=== PATIENT | male | born 1950 | race Caucasian/White ===

== ENCOUNTER → 2016-06-08 | Outpatient (CLI) | payer BC ==
[~2016-06-08] MED LIST: CLOP1TAB5 PO; FLV1 PO; LISI-461 PO; METF-382 PO; METO100T14 PO; MULT-513 PO; NIAC1TAB56 PO; NTRGSL/4 UT; PANT40TA2 PO; ZCR80 PO
== END | disposition home or self-care (01) ==
LOC: C.LAB 09:22
DX: I25.10 Atherosclerotic heart disease of native coronary artery without angina pectoris (principal); E61.2 Magnesium deficiency; I10 Essential (primary) hypertension

== ENCOUNTER → 2016-06-20 | Outpatient (CLI) | payer BC ==
[~2016-06-20] MED LIST changes: -PANT40TA2 PO; +PRT/40 PO
--- NOTE | 2016-06-23 08:11 | PULMONARY FUNCTION TEST ---
Spirometry is consistent with a severe restrictive pattern. Repeat study done following bronchodilator showed no change in function. Flow volume loops were consistent with spirometric findings.
== END | disposition home or self-care (01) ==
LOC: C.RC 13:53
DX: J44.9 Chronic obstructive pulmonary disease, unspecified (principal); J90 Pleural effusion, not elsewhere classified; Z90.2 Acquired absence of lung [part of]

== ENCOUNTER → 2016-06-21 | Outpatient (CLI) | payer BC | END | disposition home or self-care (01) | LOC: C.RC 17:03 | DX: I50.9 Heart failure, unspecified (principal); R06.00 Dyspnea, unspecified ==

== ENCOUNTER → 2016-09-12 | Outpatient (CLI) | payer BC ==
[~2016-09-12] MED LIST changes: +PANT40TA2 PO; -PRT/40 PO
== END | disposition home or self-care (01) ==
LOC: C.RC 17:00
DX: R09.02 Hypoxemia (principal)

== ENCOUNTER → 2017-01-23 | Outpatient (CLI) | payer BC ==
[~2017-01-23] MED LIST changes: -PANT40TA2 PO; +PRT/40 PO
[2017-01-23 12:06] LABS: BASO % 0.2 %; BASO ABS # 0.02 K/uL (0-0.2); COMPLETE YES; EOS % 2.1 %; HEMATOCRIT 40.8 % (42-52); IG% 0.4 %; LYMPH ABS # 1.89 K/uL (1.2-3.4); MEAN CELL VOLUME 101.2 fL (80-100); MEAN CORPUSCULAR HEMOGLOBIN 34.7 pg (25-34); MEAN CORPUSCULAR HGB CONC 34.3 g/dl (32-36); MEAN PLATELET VOLUME 10.9 fL (7.4-10.4); MONO % 8.9 %; NEUT % 65.4 %; PLATELET COUNT 126 K/uL (130-400); RED BLOOD COUNT 4.03 M/uL (4.7-6.1); WHITE BLOOD COUNT 8.22 K/uL (4.8-10.8)
[2017-01-23 12:18] LABS: ALT/SGPT 21 U/L (12-78); AST/SGOT 15 U/L (15-37); BLOOD UREA NITROGEN 30 mg/dl (7-18); BUN/CREATININE RATIO 23.3 (10-20); CALCIUM 9.1 mg/dl (8.5-10.1); CARBON DIOXIDE 29 mmol/L (21-32); CHLORIDE 108 mmol/L (98-107); CHOLESTEROL 142 mg/dl (0-200); GLUCOSE 87 mg/dl (70-99); MAGNESIUM 1.6 mg/dl (1.8-2.4); POTASSIUM 4.4 mmol/L (3.5-5.1); SODIUM 141 mmol/L (136-145); URIC ACID 4.8 mg/dl (2.6-7.2)
[2017-01-23 12:20] LABS: CHOLESTEROL/HDL RATIO 3.2; HDL CHOLESTEROL 44 mg/dl; LDL CHOLESTEROL CALCULATED 54 mg/dl; TRIGLYCERIDES 222 mg/dl (0-150); VERY LOW DENSITY LIPOPROT CALC 44 mg/dl
== END | disposition home or self-care (01) ==
LOC: C.LAB 09:48
DX: E78.5 Hyperlipidemia, unspecified (principal); R73.9 Hyperglycemia, unspecified; E79.0 Hyperuricemia without signs of inflammatory arthritis and tophaceous disease

== ENCOUNTER → 2017-02-01 | Outpatient (CLI) | payer BC ==
[2017-02-01 12:07] LABS: BASO % 0.2 %; BASO ABS # 0.02 K/uL (0-0.2); COMPLETE YES; IG% 0.4 %; LYMPH % 28.7 %; LYMPH ABS # 2.32 K/uL (1.2-3.4); MEAN CELL VOLUME 103.3 fL (80-100); MEAN CORPUSCULAR HEMOGLOBIN 33.3 pg (25-34); MEAN CORPUSCULAR HGB CONC 32.3 g/dl (32-36); MEAN PLATELET VOLUME 10.9 fL (7.4-10.4); MONO % 8.7 %; PLATELET COUNT 143 K/uL (130-400); RED BLOOD COUNT 4.26 M/uL (4.7-6.1); WHITE BLOOD COUNT 8.07 K/uL (4.8-10.8)
--- NOTE | 2017-02-15 08:35 | CODING QUERY MEDICAL NECESSITY ---
SUPPORTING DIAGNOSIS NEEDED Dr. Ford, A supporting diagnosis is required for the test/procedure performed on this patient in order for us to be reimbursed by the patient's insurance. Please provide a supporting diagnosis for the following test/procedure listed below next to the test name along with your signature. *If there is no additional diagnosis for this patient that would support the following test/procedure please document that below next to the test/procedure. Test(s)/Procedure(s) that require a supporting diagnosis: * ([id number]) B12 VITAMIN LEVEL DIAGNOSIS: * ([id number]) FOLATE LEVEL DIAGNOSIS: DATE OF SERVICE: 02/01/17 Provider Signature: Date: Thank you [facility] Information Management Once completed, please kindly fax back to [phone] For questions please call [phone]
== END | disposition home or self-care (01) ==
LOC: C.LAB 10:21
DX: D64.9 Anemia, unspecified (principal); E53.9 Vitamin B deficiency, unspecified

== ENCOUNTER → 2017-05-03 | Outpatient (CLI) | payer BC ==
[~2017-05-03] MED LIST changes: +PANT40TA2 PO; -PRT/40 PO
--- NOTE | 2017-05-03 13:58 | DIAGNOSTIC IMAGING REPORT ---
CHEST 2 VIEWS ROUTINE CLINICAL HISTORY: 66 years-old Male presenting with L ARM SWELLING. TECHNIQUE: PA and lateral views of the chest were obtained. COMPARISON: 05/30/2016. FINDINGS: Left subclavian implanted cardiac defibrillator with lead to the right ventricular apex. Median sternotomy wires and mediastinal surgical clips. Atherosclerosis of aortic arch. Persistent enlargement of the cardiac silhouette. Persistent moderate right and [id number] left pleural effusions with basilar predominant opacities. Mild prominence of upper lobe pulmonary vasculature. No pneumothorax. Osseous structures normal. Upper abdomen normal. IMPRESSION: 1. Cardiomegaly with persistent bibasilar opacities and right greater than left pleural effusions. A component of pulmonary edema cannot be excluded, although bibasilar opacities likely represent chronic passive atelectasis. Electronically signed by: Alex Quintana M.D. 05/03/2017 1:57 PM Dictated Date/Time: 05/03/2017 1:55 PM
--- NOTE | 2017-05-03 14:24 | DIAGNOSTIC IMAGING REPORT ---
L VENOUS DOPPLER UPR EXT UNIL HISTORY: Pain. Edema. L ARM SWELLING COMPARISON STUDY: None. FINDINGS: Findings consistent with nonocclusive thrombus remains within the left axillary vein as well as the left subclavian vein. Compressibility is somewhat compromised. All remaining venous structures are unremarkable. IMPRESSION: Acute deep venous thrombosis of the left axillary and left subclavian veins The above report was generated using voice recognition software. It may contain grammatical, syntax or spelling errors. Electronically signed by: Jossue Stahl M.D. 05/03/2017 2:23 PM Dictated Date/Time: 05/03/2017 2:21 PM
[2017-05-03 16:51] LABS: BASO % 0.2 %; BASO ABS # 0.02 K/uL (0-0.2); COMPLETE YES; EOS % 2.3 %; HEMATOCRIT 42.3 % (42-52); IG% 0.2 %; LYMPH % 27.4 %; LYMPH ABS # 2.62 K/uL (1.2-3.4); MEAN CORPUSCULAR HEMOGLOBIN 35.2 pg (25-34); MEAN CORPUSCULAR HGB CONC 33.6 g/dl (32-36); MEAN PLATELET VOLUME 11.2 fL (7.4-10.4); MONO % 9.7 %; NEUT % 60.2 %; PLATELET COUNT 140 K/uL (130-400); RED BLOOD COUNT 4.03 M/uL (4.7-6.1); WHITE BLOOD COUNT 9.57 K/uL (4.8-10.8)
== END | disposition home or self-care (01) ==
LOC: C.ULTRBC 13:34
DX: R22.32 Localized swelling, mass and lump, left upper limb (principal); E53.8 Deficiency of other specified B group vitamins; R23.3 Spontaneous ecchymoses

== ENCOUNTER → 2017-05-15 | Outpatient (CLI) | payer BC ==
[2017-05-15 09:55] LABS: ESTIMATED AVERAGE GLUCOSE 126 mg/dl; HA1C FLAG Normal (Normal)
== END | disposition home or self-care (01) ==
LOC: C.LAB 07:13
DX: E88.81 Metabolic syndrome and other insulin resistance (principal)

== ENCOUNTER → 2017-08-15 | Outpatient (CLI) | payer BC ==
[2017-08-15 09:42] LABS: BASO % 0.3 %; BASO ABS # 0.02 K/uL (0-0.2); EOS % 3.2 %; EOS ABS # 0.23 K/uL (0-0.5); HEMOGLOBIN 15.1 g/dL (14.0-18.0); IG# 0.03 K/uL (0.00-0.02); LYMPH % 31.4 %; LYMPH ABS # 2.29 K/uL (1.2-3.4); MEAN CELL VOLUME 104.9 fL (80-100); MEAN CORPUSCULAR HEMOGLOBIN 35.2 pg (25-34); MEAN CORPUSCULAR HGB CONC 33.6 g/dl (32-36); MEAN PLATELET VOLUME 10.8 fL (7.4-10.4); MONO % 7.8 %; MONO ABS # 0.57 K/uL (0.11-0.59); NEUT % 56.9 %; NEUT ABS # 4.16 K/uL (1.4-6.5); PLATELET COUNT 139 K/uL (130-400); RED CELL DISTRIBUTION WIDTH CV 13.9 % (11.5-14.5); RED CELL DISTRIBUTION WIDTH SD 52.7 fL (36.4-46.3)
[2017-08-15 09:47] LABS: HEMOGLOBIN A1C 6.2 % (4.5-5.6)
[2017-08-15 10:28] LABS: ALT/SGPT 22 U/L (12-78); AST/SGOT 16 U/L (15-37); BLOOD UREA NITROGEN 40 mg/dl (7-18); CALCIUM 9.5 mg/dl (8.5-10.1); CARBON DIOXIDE 32 mmol/L (21-32); CHOLESTEROL 147 mg/dl (0-200); CREATININE 1.89 mg/dl (0.60-1.40); GLUCOSE 99 mg/dl (70-99); POTASSIUM 5.5 mmol/L (3.5-5.1); SODIUM 140 mmol/L (136-145)
[2017-08-15 10:31] LABS: LDL CHOLESTEROL CALCULATED 40 mg/dl
== END | disposition home or self-care (01) ==
LOC: C.LAB 07:06
DX: R73.9 Hyperglycemia, unspecified (principal); I10 Essential (primary) hypertension; E78.5 Hyperlipidemia, unspecified; M10.9 Gout, unspecified; E53.8 Deficiency of other specified B group vitamins

== ENCOUNTER → 2017-08-21 | Outpatient (CLI) | payer BC ==
[2017-08-21 14:20] LABS: INFLUENZA A PCR Neg for Influ A (NEG); INFLUENZA B PCR Neg for Influ B (NEG)
== END | disposition home or self-care (01) ==
LOC: C.LAB 12:35
DX: R50.9 Fever, unspecified (principal); R05 Cough

== ENCOUNTER 2019-07-04 14:37 | Observation (INO) ==
[2019-07-04] MEDS ORDERED: SODIUM CHLORIDE 0.9% 1000ML 1,000 ML IV SCH (16:30)
[2019-07-04 16:49] LABS: Basophils # (auto) 0.01 K/uL (0-0.2); Basophils % (auto) 0.1 %; Eosinophils % (auto) 1.1 %; Hematocrit (blood only) 45.4 % (42-52); Immature Granulocytes # (auto) 0.04 K/uL (0.00-0.02); Immature Granulocytes % (auto) 0.4 %; Lymphocytes # (auto) 1.64 K/uL (1.2-3.4); Lymphocytes % (auto) 17.8 %; Mean Corpuscular Hemoglobin 33.7 pg (25-34); Mean Corpuscular Hgb Conc 35.2 g/dL (32-36); Mean Corpuscular Volume 95.6 fL (80-100); Mean Platelet Volume 11.7 fL (7.4-10.4); Monocytes # (auto) 0.78 K/uL (0.11-0.59); Monocytes % (auto) 8.5 %; Neutrophils # (auto) 6.64 K/uL (1.4-6.5); Neutrophils % (auto) 72.1 %; Platelet Count 159 K/uL (130-400); RDW Coefficient of Variation 13.4 % (11.5-14.5); RDW Standard Deviation 46.1 fL (36.4-46.3); Red Blood Count 4.75 M/uL (4.7-6.1); White Blood Count 9.21 K/uL (4.8-10.8)
--- NOTE | 2019-07-04 16:50 | XRay Report ---
XR chest 1V portable HISTORY: 69 years-old Male weakness acute weakness COMPARISON: Chest radiographs 05/03/2017 TECHNIQUE: Portable AP view of the chest FINDINGS: Cardiac silhouette is enlarged. Prior median sternotomy and CABG. Left subclavian pacer/AICD. Unchang ed pleural effusions with bibasilar densities. No pneumothorax or overt pulmonary edema. Degenerative changes of the shoulders and spine. IMPRESSION: 1. Stable exam. 2. Cardiomegaly with unchanged pleural effusions and bibasilar opacities suggestive of probable atele ctasis/scarring. ACT 112: Negative or not required by law. The above report was generated using voice recognition software. It may contain grammatical, syntax o r spelling errors. Electronically signed by: Everett Garcia M.D. 07/04/2019 4:49 PM
[2019-07-04 17:05] LABS: Alanine Aminotransferase 21 U/L (12-78); Albumin Globulin Ratio 0.8 (0.9-2); Albumin Level 3.6 gm/dl (3.4-5.0); BUN Creatinine Ratio 18.1 (10-20); Bilirubin,Total 0.7 mg/dl (0.2-1); Blood Urea Nitrogen 32 mg/dl (7-18); Calcium 9.5 mg/dl (8.5-10.1); Carbon Dioxide 31 mmol/L (21-32); Chloride 91 mmol/L (98-107); Creatinine Clr Calc Pharmacy 39.9 ml/min; Est GFR (African American) 43.8; Est GFR (Non-African American) 37.8; Globulin 4.6 gm/dl (2.5-4.0); Glucose 624 mg/dl (70-99); Sodium 128 mmol/L (136-145); Total Protein 8.2 gm/dl (6.4-8.2)
[2019-07-04 17:08] LABS: Alkaline Phosphatase 118 U/L (45-117); Troponin I < 0.015 ng/ml (0-0.045)
[2019-07-04] MEDS ORDERED: INSULIN PROTOCOL GOAL RANGE ONE (17:14)
[2019-07-04] MEDS ORDERED: MODERATE STRESS LEVEL ONE (17:14)
[2019-07-04] MEDS ORDERED: INSULIN REGULAR 250 UNITS in SODIUM CHLORIDE 0.9% 247.5 ML IV SCH (17:15)
[2019-07-04] MEDS ORDERED: SODIUM CHLORIDE 0.9% 1000ML 500 ML IV ONE (17:24)
[2019-07-04] MEDS ORDERED: DEXTROSE 50% 50 ML SYRINGE IV PRN ×2 (17:30→19:43)
[2019-07-04] MEDS ORDERED: GLUCOSE 40% GEL 15 GM TUBE PO PRN ×2 (17:30→19:43)
[2019-07-04] MEDS ORDERED: GLUCAGON FOR INJ 1 MG VIAL IM PRN (17:30)
[2019-07-04] MEDS ORDERED: CARBOHYDRATES FOR HYPOGLYCEMIA PO PRN ×2 (17:30→19:43)
[2019-07-04] MEDS ORDERED: GLUCOSE 10 TABS/TUBE PO PRN ×2 (17:30→19:43)
[2019-07-04] MEDS ORDERED: NovoLIN-R BOLUS FROM BAG IV ONE (17:45)
--- NOTE | 2019-07-04 19:00 | History & Physical Report ---
Date of Service July 04, 2019 Assessment & Plan (1) Severe hyperglycemia due to diabetes mellitus: Presented with 2 months of worsening blurry vision, excessive thirst, fatigue and found to have blood sugar of 624 on admission Reports discontinuing his metformin 1 year ago likely for worsening CKD and starting on Januvia at that time Hemoglobin A1c reportedly 7.2% just 6 months ago No evidence of DKA Fairly significant increase in glucose levels over the last few months-question if pancreatic process going on -Admit to medical floor with telemetry -Finish out the 1 L of normal saline and then hold off on further fluids given cardiomyopathy -On insulin drip-consult pharmacy for glycemic management -Plan to likely transition to basal and bolus insulin tomorrow based on requirements with insulin drip -Follow BMP, phosphorus, magnesium -Consult ems educator and dietitian -Check hemoglobin [id number] -Consider imaging of the pancreas tomorrow (2) ACACIA (acute kidney injury): Creatinine up to 1.78 on admission secondary to dehydration from hyperglycemia Baseline creatinine around 1.4 -Hydrated with normal saline, control blood sugars -Follow BMP in the morning -Holding home lisinopril and Lasix (3) CKD (chronic kidney disease) stage 3, GFR 30-59 ml/min: With acute kidney injury as above -Avoid nephrotoxins -Renally dose medications when appropriate (4) Chronic pleural effusion: Reports having thoracentesis 15 years ago after the time of his CABG Appears to have chronic pleural effusions likely from heart failure Not hypoxic, no respiratory distress (5) Diabetes mellitus: Plan outlined as above (6) Gout: No acute flares in many years -Continue allopurinol 100 mg p.o. twice daily (7) Hypertension: Blood pressures controlled to low on admission -Holding lisinopril and Lasix for ACACIA as above Continue Toprol-XL 125 mg p.o. twice daily with hold parameters (8) Hyperlipidemia: -Continue atorvastatin 80 mg at bedtime (9) ICD (implantable cardioverter-defibrillator) in place: For primary prevention given severe ischemic cardiomyopathy (10) GERD (gastroesophageal reflux disease): Continue PPI (11) CAD (coronary artery disease), [place] coronary artery: With a history of CABG in 2003 and then stents to the RCA in 2004 No problems since then No chest pains ECG with anterolateral T wave inversions fairly similar to previous Troponin here is negative -Continue aspirin 81 mg daily, statin 80 mg daily, Toprol-XL 125 mg p.o. twice daily -Holding lisinopril (12) Hyponatremia: Pseudohyponatremia secondary to severe hyperglycemia Sodium corrected is normal -Follow BMP (13) Abnormal ECG: Anterolateral T wave inversions as above, fairly stable from previous (14) Chronic systolic CHF (congestive heart failure): Most recent echocardiogram scanned and has an LVEF 40% which is an improvement from previous -Continue Toprol-XL -Holding lisinopril and Lasix as above -Strict I's and O's, daily weights, heart healthy diet (15) DVT prophylaxis: Lovenox SQ Disposition-admit on observation to medical floor with telemetry History of Present Illness Chief Complaint: High blood sugar Primary Care Provider: Galo Ford Jr, DO This patient is a 69-year-old male with a history of DM 2, chronic systolic CHF, ischemic cardiomyopathy, CKD stage III, ICD/PPM, gout, CAD with history of CABG, GERD, who presented to the ER after he found his blood sugar to be greater than 600 on his meter at home. He reports he was stopped from his metformin 1 year ago and his hemoglobin A1c 6 months ago was 7.2%. He was placed on Januvia when his metformin was stopped. He stopped checking his blood sugars a few months back. And has noticed over the last 2 months he is developed excessive thirst, blurry vision, and worsening fatigue. He finally got his glucometer out today and checked his sugar and found it to be 600. He denies chest pains or shortness of breath, no weight gain or loss. No nausea or vomiting, no abdominal pains or changes in bowel habits. No recent fevers/cold symptoms, no cough. In the ER, he was given 500 mL bolus of normal saline followed by the rest of the 500 mils at a rate of 125 mL's per hour. He was started on insulin drip before I saw him. Blood sugars were down into the mid 400s when I saw him. He had a mild acute kidney injury. His beta hydroxybutyric acid was elevated, however he had no evidence of metabolic acidosis or DKA. Allergies Allergy/AdvReac Type Severity Reaction Status Date / Time No Known Allergies Allergy Unknown Verified 07/04/19 16:32 Home Medications Home Medications Medication Instructions Recorded Confirmed Type Januvia 50 mg PO QAM 05/09/19 07/04/19 History One-A-Day Men's 50 Plus 1 tab PO QAM 05/09/19 07/04/19 History allopurinol 100 mg PO BID 05/09/19 07/04/19 History aspirin [Aspirin Low Dose] 81 mg PO QAM 05/09/19 07/04/19 History atorvastatin 80 mg PO HS 05/09/19 07/04/19 History colchicine 0.6 mg PO DAILY PRN 05/09/19 07/04/19 History cyanocobalamin (vitamin B-12) 1,000 mcg IM MONTHLY 05/09/19 07/04/19 History folic acid 800 mcg PO QAM 05/09/19 07/04/19 History furosemide [Lasix] 20 mg PO Q OTHER DAY 05/09/19 07/04/19 History furosemide [Lasix] 40 mg PO Q OTHER DAY 05/09/19 07/04/19 History lisinopril 10 mg PO QAM 05/09/19 07/04/19 History magnesium oxide 400 mg PO QAM 05/09/19 07/04/19 History metoprolol succinate [Toprol XL] 25 mg PO BID 05/09/19 07/04/19 History metoprolol succinate [Toprol XL] 100 mg PO BID 05/09/19 07/04/19 History nitroglycerin [Nitrostat] 0.4 mg SUBLINGUAL UD PRN 05/09/19 07/04/19 History omega 6-kid-ckm-fish oil 1 cap PO QDL 05/09/19 07/04/19 History pantoprazole [Protonix] 20 mg PO BID 05/09/19 07/04/19 History Past Med/Surg History Medical History (Updated 07/04/19 @ 21:19 by Carlene Figueredo MD) CAD (coronary artery disease), [place] coronary artery Chronic pleural effusion Chronic systolic CHF (congestive heart failure) CKD (chronic kidney disease) stage 3, GFR 30-59 ml/min Diabetes mellitus GERD (gastroesophageal reflux disease) Gout History of anesthesia reaction hallucinated after bypass surgery---no lingering issues, no further issues with anesthesia Hyperlipidemia Hypertension ICD (implantable cardioverter-defibrillator) in place 01/05/2016[place] [place] [facility] [place]schemic cardiomyopathy Lung abnormality hx of fluid around right lung--drained, but scared lung, unable to full expand (50% function) On home oxygen therapy 2L via N/C prn sob Tinnitus of right ear Surgical History [place] of cardiac [place] x2[place] [facility] [place] of [place]oscopy History of coronary artery bypass graft x 3 10/2003---follows with Dr. Flynn History of heart artery stent 04/03/2005 [place] [facility] [place] of surgery drainage of fluid from around right lung Family History Mother Family history of diabetes mellitus Other No family history of adverse response to anesthesia Social History Preferred Language: [place] Communication Ability: Effective Supervisor Steno Pool Required: No Beliefs That Will Affect Care: None Current Living Situation: Spouse Other Information That Helps Us Care for You: No Feels Safe at Home: Yes Safety Concerns: Feels Safe At This Time Smoking Status: Former smoker Smoking End Date: 15 years ago ; Second Hand Expo sure: No ; Hx Alcohol Use: No Hx Substance Use: No Review of Systems Review of Systems: All systems reviewed & are unremarkable except as noted in HPI & below Physical Exam Constitutional: WD/WN, vitals as above Eyes: PERRL, conjunctivae normal, anicteric sclerae ENMT: external ear and nose normal, oropharynx normal Neck: trachea midline, no thyromegaly Respiratory: normal respiratory effort, lungs clear to auscultation Cardiovascular: RRR, no murmur, no edema Vessels: dorsalis pedis pulses present Extremities: no calf tenderness Chest (Breasts): Chest: + pacemaker (Left anterior chest wall) Gastrointestinal (Abdomen): normal bowel sounds, soft, nontender, no hepatosplenomegaly Musculoskeletal: Extremities: extremities normal to inspection; no cyanosis and no clubbing Skin: no rashes, warm and dry Neurologic: moves all extremities and awake; no focal motor deficits Psychiatric: A+Ox3, euthymic affect Lymphatic: no lymphedema Results & Data Vital Signs (Past 12 Hours) Vital Signs Temp Pulse Resp BP Pulse Ox 07/04/19 18:00 68 24 92/59 L 91 07/04/19 17:30 69 23 95/60 L 92 07/04/19 17:05 94 07/04/19 17:00 68 33 H 116/63 93 07/04/19 16:30 72 29 H 119/78 90 07/04/19 16:00 72 23 101/73 89 L 07/04/19 15:36 69 18 97/61 L 91 07/04/19 15:02 36.4 C L 71 18 111/70 91 Laboratory Results 07/04/19 07/04/19 07/04/19 Range/Units 21:01 20:06 19:55 WBC (4.8-10.8) K/uL RBC (4.7-6.1) M/uL Hgb (14.0-18.0) g/dL Hct (42-52) % MCV (80-100) fL MCH (25-34) pg MCHC (32-36) g/dL RDW Std Deviation (36.4-46.3) fL RDW Coeff of Mike (11.5-14.5) % Plt Count (130-400) K/uL MPV (7.4-10.4) fL Immature Gran % (Auto) % Neut % (Auto) % Lymph % (Auto) % [place] % (Auto) % Eos % (Auto) % Baso % (Auto) % Immature Gran # (Auto) (0.00-0.02) K/uL Neut # (Auto) (1.4-6.5) K/uL Lymph # (Auto) (1.2-3.4) K/uL [place] # (Auto) (0.11-0.59) K/uL Eos # (Auto) (0-0.5) K/uL Baso # (Auto) (0-0.2) K/uL Sodium (136-145) mmol/L Potassium (3.5-5.1) mmol/L Chloride (98-107) mmol/L Carbon Dioxide (21-32) mmol/L Anion Gap (3-11) BUN (7-18) mg/dl Creatinine (0.6-1.4) mg/dl Est Cr Clr Drug Dosing ml/min Est GFR ( Amer) Est GFR (Non-Af Amer) BUN/Creatinine Ratio (10-20) Glucose (70-99) mg/dl POC Glucose 324 H* 401 H* (70-99) mg/dl Estimat Average Glucose Hemoglobin A1c Calcium (8.5-10.1) mg/dl Phosphorus (2.5-4.9) mg/dl Magnesium (1.8-2.4) mg/dl Total Bilirubin (0.2-1) mg/dl AST (15-37) U/L ALT (12-78) U/L Alkaline Phosphatase (45-117) U/L Troponin I (0-0.045) ng/ml Total Protein (6.4-8.2) gm/dl Albumin (3.4-5.0) gm/dl Globulin (2.5-4.0) gm/dl Albumin/Globulin Ratio (0.9-2) Beta-Hydroxybutyric Acd (0.2-2.81) mg/dl TSH (0.300-4.500) uIu/ml Urine Color Yellow Urine Appearance Clear (Clear) Urine pH 5.0 (4.5-7.5) Ur Specific [place] 1.035 H (1.000-1.030) Urine Protein Negative (Negative) Urine Glucose (UA) 3+ H (Negative) Urine Ketones 1+ H (Negative) Urine Blood Negative (Negative) Urine Nitrite Negative (Negative) Urine Bilirubin Negative (Negative) Urine Urobilinogen Negative (Negative) Ur Leukocyte Esterase Negative (Negative) Hepatitis C Ab Screen 07/04/19 07/04/19 07/04/19 Range/Units 18:51 18:27 18:27 WBC (4.8-10.8) K/uL RBC (4.7-6.1) M/uL Hgb (14.0-18.0) g/dL Hct (42-52) % MCV (80-100) fL MCH (25-34) pg MCHC (32-36) g/dL RDW Std Deviation (36.4-46.3) fL RDW Coeff of Mike (11.5-14.5) % Plt Count (130-400) K/uL MPV (7.4-10.4) fL Immature Gran % (Auto) % Neut % (Auto) % Lymph % (Auto) % [place] % (Auto) % Eos % (Auto) % Baso % (Auto) % Immature Gran # (Auto) (0.00-0.02) K/uL Neut # (Auto) (1.4-6.5) K/uL Lymph # (Auto) (1.2-3.4) K/uL [place] # (Auto) (0.11-0.59) K/uL Eos # (Auto) (0-0.5) K/uL Baso # (Auto) (0-0.2) K/uL Sodium 133 L (136-145) mmol/L Potassium 4.6 (3.5-5.1) mmol/L Chloride 97 L (98-107) mmol/L Carbon Dioxide 28 (21-32) mmol/L Anion Gap 8.0 (3-11) BUN 31 H (7-18) mg/dl Creatinine 1.49 H (0.6-1.4) mg/dl Est Cr Clr Drug Dosing 47.6 ml/min Est GFR ( Amer) 54.3 Est GFR (Non-Af Amer) 46.9 BUN/Creatinine Ratio 20.8 H (10-20) Glucose 447 H* (70-99) mg/dl POC Glucose 450 H* (70-99) mg/dl Estimat Average Glucose Hemoglobin A1c Calcium 9.1 (8.5-10.1) mg/dl Phosphorus 2.8 (2.5-4.9) mg/dl Magnesium 2.6 H (1.8-2.4) mg/dl Total Bilirubin (0.2-1) mg/dl AST 12 L (15-37) U/L ALT (12-78) U/L Alkaline Phosphatase (45-117) U/L Troponin I (0-0.045) ng/ml Total Protein (6.4-8.2) gm/dl Albumin (3.4-5.0) gm/dl Globulin (2.5-4.0) gm/dl Albumin/Globulin Ratio (0.9-2) Beta-Hydroxybutyric Acd Cancelled 10.21 H (0.2-2.81) mg/dl TSH (0.300-4.500) uIu/ml Urine Color Urine Appearance (Clear) Urine pH (4.5-7.5) Ur Specific [place] (1.000-1.030) Urine Protein (Negative) Urine Glucose (UA) (Negative) Urine Ketones (Negative) Urine Blood (Negative) Urine Nitrite (Negative) Urine Bilirubin (Negative) Urine Urobilinogen (Negative) Ur Leukocyte Esterase (Negative) Hepatitis C Ab Screen 07/04/19 07/04/19 07/04/19 Range/Units 17:36 17:35 15:26 WBC (4.8-10.8) K/uL RBC (4.7-6.1) M/uL Hgb (14.0-18.0) g/dL Hct (42-52) % MCV (80-100) fL MCH (25-34) pg MCHC (32-36) g/dL RDW Std Deviation (36.4-46.3) fL RDW Coeff of Mike (11.5-14.5) % Plt Count (130-400) K/uL MPV (7.4-10.4) fL Immature Gran % (Auto) % Neut % (Auto) % Lymph % (Auto) % [place] % (Auto) % Eos % (Auto) % Baso % (Auto) % Immature Gran # (Auto) (0.00-0.02) K/uL Neut # (Auto) (1.4-6.5) K/uL Lymph # (Auto) (1.2-3.4) K/uL [place] # (Auto) (0.11-0.59) K/uL Eos # (Auto) (0-0.5) K/uL Baso # (Auto) (0-0.2) K/uL Sodium (136-145) mmol/L Potassium (3.5-5.1) mmol/L Chloride (98-107) mmol/L Carbon Dioxide (21-32) mmol/L Anion Gap (3-11) BUN (7-18) mg/dl Creatinine (0.6-1.4) mg/dl Est Cr Clr Drug Dosing ml/min Est GFR ( Amer) Est GFR (Non-Af Amer) BUN/Creatinine Ratio (10-20) Glucose (70-99) mg/dl POC Glucose 481 H* 489 H* (70-99) mg/dl Estimat Average Glucose Hemoglobin A1c Calcium (8.5-10.1) mg/dl Phosphorus (2.5-4.9) mg/dl Magnesium (1.8-2.4) mg/dl Total Bilirubin (0.2-1) mg/dl AST (15-37) U/L ALT (12-78) U/L Alkaline Phosphatase (45-117) U/L Troponin I (0-0.045) ng/ml Total Protein (6.4-8.2) gm/dl Albumin (3.4-5.0) gm/dl Globulin (2.5-4.0) gm/dl Albumin/Globulin Ratio (0.9-2) Beta-Hydroxybutyric Acd (0.2-2.81) mg/dl TSH (0.300-4.500) uIu/ml Urine Color Urine Appearance (Clear) Urine pH (4.5-7.5) Ur Specific [place] (1.000-1.030) Urine Protein (Negative) Urine Glucose (UA) (Negative) Urine Ketones (Negative) Urine Blood (Negative) Urine Nitrite (Negative) Urine Bilirubin (Negative) Urine Urobilinogen (Negative) Ur Leukocyte Esterase (Negative) Hepatitis C Ab Screen Pending 07/04/19 07/04/19 07/04/19 Range/Units 15:26 15:26 15:26 WBC 9.21 (4.8-10.8) K/uL RBC 4.75 (4.7-6.1) M/uL Hgb 16.0 (14.0-18.0) g/dL Hct 45.4 (42-52) % MCV 95.6 (80-100) fL MCH 33.7 (25-34) pg MCHC 35.2 (32-36) g/dL RDW Std Deviation 46.1 (36.4-46.3) fL RDW Coeff of Mike 13.4 (11.5-14.5) % Plt Count 159 (130-400) K/uL MPV 11.7 H (7.4-10.4) fL Immature Gran % (Auto) 0.4 % Neut % (Auto) 72.1 % Lymph % (Auto) 17.8 % [place] % (Auto) 8.5 % Eos % (Auto) 1.1 % Baso % (Auto) 0.1 % Immature Gran # (Auto) 0.04 H (0.00-0.02) K/uL Neut # (Auto) 6.64 H (1.4-6.5) K/uL Lymph # (Auto) 1.64 (1.2-3.4) K/uL [place] # (Auto) 0.78 H (0.11-0.59) K/uL Eos # (Auto) 0.10 (0-0.5) K/uL Baso # (Auto) 0.01 (0-0.2) K/uL Sodium 128 L (136-145) mmol/L Potassium (3.5-5.1) mmol/L Chloride 91 L (98-107) mmol/L Carbon Dioxide 31 (21-32) mmol/L Anion Gap 5.0 (3-11) BUN 32 H (7-18) mg/dl Creatinine 1.78 H (0.6-1.4) mg/dl Est Cr Clr Drug Dosing 39.9 ml/min Est GFR ( Amer) 43.8 Est GFR (Non-Af Amer) 37.8 BUN/Creatinine Ratio 18.1 (10-20) Glucose 624 H* (70-99) mg/dl POC Glucose (70-99) mg/dl Estimat Average Glucose Pending Hemoglobin A1c Pending Calcium 9.5 (8.5-10.1) mg/dl Phosphorus (2.5-4.9) mg/dl Magnesium (1.8-2.4) mg/dl Total Bilirubin 0.7 (0.2-1) mg/dl AST (15-37) U/L ALT 21 (12-78) U/L Alkaline Phosphatase 118 H (45-117) U/L Troponin I < 0.015 (0-0.045) ng/ml Total Protein 8.2 (6.4-8.2) gm/dl Albumin 3.6 (3.4-5.0) gm/dl Globulin 4.6 H (2.5-4.0) gm/dl Albumin/Globulin Ratio 0.8 L (0.9-2) Beta-Hydroxybutyric Acd (0.2-2.81) mg/dl TSH 1.930 (0.300-4.500) uIu/ml Urine Color Urine Appearance (Clear) Urine pH (4.5-7.5) Ur Specific [place] (1.000-1.030) Urine Protein (Negative) Urine Glucose (UA) (Negative) Urine Ketones (Negative) Urine Blood (Negative) Urine Nitrite (Negative) Urine Bilirubin (Negative) Urine Urobilinogen (Negative) Ur Leukocyte Esterase (Negative) Hepatitis C Ab Screen 07/04/19 Range/Units 15:08 WBC (4.8-10.8) K/uL RBC (4.7-6.1) M/uL Hgb (14.0-18.0) g/dL Hct (42-52) % MCV (80-100) fL MCH (25-34) pg MCHC (32-36) g/dL RDW Std Deviation (36.4-46.3) fL RDW Coeff of Mike (11.5-14.5) % Plt Count (130-400) K/uL MPV (7.4-10.4) fL Immature Gran % (Auto) % Neut % (Auto) % Lymph % (Auto) % [place] % (Auto) % Eos % (Auto) % Baso % (Auto) % Immature Gran # (Auto) (0.00-0.02) K/uL Neut # (Auto) (1.4-6.5) K/uL Lymph # (Auto) (1.2-3.4) K/uL [place] # (Auto) (0.11-0.59) K/uL Eos # (Auto) (0-0.5) K/uL Baso # (Auto) (0-0.2) K/uL Sodium (136-145) mmol/L Potassium (3.5-5.1) mmol/L Chloride (98-107) mmol/L Carbon Dioxide (21-32) mmol/L Anion Gap (3-11) BUN (7-18) mg/dl Creatinine (0.6-1.4) mg/dl Est Cr Clr Drug Dosing ml/min Est GFR ( Amer) Est GFR (Non-Af Amer) BUN/Creatinine Ratio (10-20) Glucose (70-99) mg/dl POC Glucose > 600 H* (70-99) mg/dl Estimat Average Glucose Hemoglobin A1c Calcium (8.5-10.1) mg/dl Phosphorus (2.5-4.9) mg/dl Magnesium (1.8-2.4) mg/dl Total Bilirubin (0.2-1) mg/dl AST (15-37) U/L ALT (12-78) U/L Alkaline Phosphatase (45-117) U/L Troponin I (0-0.045) ng/ml Total Protein (6.4-8.2) gm/dl Albumin (3.4-5.0) gm/dl Globulin (2.5-4.0) gm/dl Albumin/Globulin Ratio (0.9-2) Beta-Hydroxybutyric Acd (0.2-2.81) mg/dl TSH (0.300-4.500) uIu/ml Urine Color Urine Appearance (Clear) Urine pH (4.5-7.5) Ur Specific [place] (1.000-1.030) Urine Protein (Negative) Urine Glucose (UA) (Negative) Urine Ketones (Negative) Urine Blood (Negative) Urine Nitrite (Negative) Urine Bilirubin (Negative) Urine Urobilinogen (Negative) Ur Leukocyte Esterase (Negative) Hepatitis C Ab Screen ECG Additional Comments: ECG with normal sinus rhythm, anterolateral T wave inversions Compared to previous scanned an EKG which is difficult to visualize but there does appear to be anterior T wave inversions in that as well in 2019 Code Status & VTE Plan VTE Prophylaxis Plan VTE Prophylaxis will be ordered: Yes PG Care Time/CCT Total # of Minutes Spent Total Time Spent with Patient: Total time spent is greater than 50% in coordination of care (as documented) at patient's floor/unit and/or counseling patient: Coding Level of Care Code 49453 OBS Care - Level 3 Diagnoses Severe hyperglycemia due to diabetes mellitus E11.65 ACACIA (acute kidney injury) N17.9 CKD (chronic kidney disease) stage 3, GFR 30-59 ml/min N18.3 Chronic pleural effusion J90 Diabetes mellitus E11.9 Gout M10.9 Hypertension I10 Hyperlipidemia E78.5 ICD (implantable cardioverter-defibrillator) in place Z95.810 GERD (gastroesophageal reflux disease) K21.9 CAD (coronary artery disease), [place] coronary artery I25.10 Hyponatremia E87.1 Abnormal ECG R94.31 Chronic systolic CHF (congestive heart failure) I50.22 DVT prophylaxis Z29.9
[2019-07-04 19:09] LABS: BUN Creatinine Ratio 20.8 (10-20); Calcium 9.1 mg/dl (8.5-10.1); Creatinine Clr Calc Pharmacy 47.6 ml/min; Est GFR (African American) 54.3; Est GFR (Non-African American) 46.9; Magnesium 2.6 mg/dl (1.8-2.4); Phosphorus 2.8 mg/dl (2.5-4.9); Potassium 4.6 mmol/L (3.5-5.1)
[2019-07-04 19:33] LABS: Beta-Hydroxybutyrate 10.21 mg/dl (0.2-2.81)
[2019-07-04] MEDS ORDERED: POLYETHYLENE (MIRALAX) 17 GM PACK PO PRN (19:43)
[2019-07-04] MEDS ORDERED: GLUCAGON FOR INJ 1 MG VIAL SQ PRN (19:43)
[2019-07-04] MEDS ORDERED: NITROGLYCERIN SL 0.4 MG/TAB TAB SL PRN (19:43)
[2019-07-04] MEDS ORDERED: ONDANSETRON INJ 2 MG/ML 2 ML VIAL IV PRN (19:43)
[2019-07-04] MEDS ORDERED: ALUMINUM/MAGNESIUM SUSP 30 ML UDC PO PRN (19:43)
[2019-07-04] MEDS ORDERED: ACETAMINOPHEN 325 MG TAB PO PRN (19:43)
[2019-07-04] MEDS ORDERED: PHARMACY GLYCEMIC MGMT CONSULT PRN (20:13)
[2019-07-04 20:41] LABS: Appearance Urine Clear (Clear); Bilirubin Urine Negative (Negative); Blood Urine Negative (Negative); Color Urine Yellow; Glucose Urine UA 3+ (Negative); Ketones Urine 1+ (Negative); Leukocyte Esterase Urine Negative (Negative); Nitrite Urine Negative (Negative); Protein Urine Negative (Negative); Specific Gravity Urine 1.035 (1.000-1.030); Urobilinogen Urine Negative (Negative)
--- NOTE | 2019-07-04 20:47 | Pharmacy Report ---
Pharmacy Glycemic Short Note 2 - Date of Service July 04, 2019 - Glycemic Short BSG Results (Last 24 hours): 07/04/19 07/04/19 07/04/19 15:08 15:26 17:35 Glucose 624 H* POC Glucose > 600 H* 489 H* 07/04/19 07/04/19 07/04/19 17:36 18:27 18:51 Glucose 447 H* POC Glucose 481 H* 450 H* 07/04/19 20:06 Glucose POC Glucose 401 H* OUTPATIENT ANTIDIABETIC REGIMEN: * JANUVIA 25MG PO DAILY ASSESSMENT: * Mr. Fox is a 69 M with a history of HTN, T2DM, HLD, with an implanted defibrillator. He presented to the ED with a POC BSG >600, lab draw was 624. * An insulin gtt was started in the ED and continued on admission. * AG and CO2 wnl. * Last A1C 02/2019 - 7.2%, updated A1C pending. PLAN FOR INPATIENT GLYCEMIC CONTROL: * Hold outpatient oral diabetes medications * Continue intravenous insulin drip and adjust per rate calculator with SQ Novlog to cover CHO intake. Carb ratio to be determined by rate calculator. PLAN FOR DISCHARGE: * to be determined when BSGs are within range and insulin needs can be assessed.
[2019-07-04] MEDS ORDERED: ATORVASTATIN 40 MG TAB PO SCH (21:00)
[2019-07-04] MEDS ORDERED: INSULIN ASPART 100 UNITS/ML 3 ML PEN SC SCH (21:00)
[2019-07-04] MEDS ORDERED: ENOXAPARIN INJ 40 MG/0.4 ML SYR SQ SCH (21:00)
[2019-07-04] MEDS: allopurinoL 100 MG TAB PO SCH (21:21)
[2019-07-04] MEDS: METOPROLOL SUCC 25MG EXT REL TAB PO SCH (21:22)
[2019-07-04] MEDS: PANTOprazole 40 MG TAB PO SCH (21:22)
[2019-07-04] MEDS: METOPROLOL SUCC 50MG EXT REL TAB PO SCH (21:22)
--- NOTE | 2019-07-05 00:40 | Emergency Department Note ---
Entered by Shama Olivas acting as a scribe for Alexander Kennedy MD ED Provider Note CHIEF COMPLAINT: Hyperglycemia. HISTORY OF PRESENT ILLNESS: The patient is a 69 year old male who presents to the Emergency Room with complaints of hyperglycemia. The patient states that he took his blood sugar today and reports that it was over 600. He explains that he has recently been experiencing fatigue, increased thirst, frequent urination, blurred vision, and numbness on the soles of his feet when he ambulates. No relieving factors. The patient includes that his last A1C was 7.2 six months ago. Of note, he wears 3L of O2 at night. Pt denies LOC, headache, fevers, chills, diaphoresis, visual changes, neck pain, chest pain, breathing difficulties, nausea, vomiting, abdominal pain, back pain, melena, diarrhea, hematochezia, lymphadenopathy, rash, or other complaints. REVIEW OF SYSTEMS: See HPI for pertinent positives and negatives. A total of ten systems were reviewed and were otherwise negative. PMHx/PSHx: DM, CABG x3 (2003), placement of 2 heart artery stents (2005), ICD in place, HTN, hyperlipidemia SOCIAL HISTORY: Patient lives at home. PHYSICAL EXAM: GENERAL: Awake, alert, tired-appearing, in no distress HENT: Normocephalic, atraumatic. Oropharynx unremarkable. EYES: PERRL. Normal conjunctiva. Sclera non-icteric. NECK: Inspection normal. Non-tender. Supple. No nuchal rigidity. FROM. No masses. RESPIRATORY: Clear to auscultation. No wheezes. No rales. Normal respiratory effort. CARDIAC: Normal rate. Normal rhythm. No murmurs. No rubs. Extremities warm and well perfused. Pulses equal. No JVD. GI: Soft, non-distended. No tenderness to palpation. No rebound or guarding. No masses. RECTAL: Deferred. MUSCULOSKELETAL: Atraumatic. Chest examination reveals no tenderness. The back is symmetrical on inspection without obvious abnormality. There is no CVA tenderness to palpation. No joint edema. LOWER EXTREMITIES: Calves are equal size bilaterally and non-tender. No edema. No discoloration. NEURO: Normal sensorium. No sensory or motor deficits noted. SKIN: No rash or jaundice noted. EMERGENCY DEPARTMENT COURSE: 1620: Past medical records reviewed. The patient was evaluated in room C06, and a complete history and physical examination were performed. 1723: I checked on the patient and updated him as well as discussed admission. The patient verbally expressed understanding and agreement of the treatment plan. The patient will be evaluated for further treatment. 1725: I spoke with Dr. Weaver who will further evaluate the patient. MEDICAL DECISION MAKING: Prior records/ancillary studies reviewed. Nursing notes reviewed and agree them. Additional history obtained from family.. The patient's history was concerning for weakness. Differential diagnosis: Etiologies such as metabolic, infection, hypo/hyperglycemia, electrolyte abnormalities, cardiac sources, intracerebral event, toxicologic, neurologic, as well as others were entertained. Physical examination: As above. ER treatment provided: IV Lock Normal saline hydration IV insulin drip On reassessment the patient felt better. Diagnostics interpretation by me: ECG: T wave inversions noted. Patient without having any chest pain. The labs revealed an unremarkable CBC. Pseudohyponatremia noted on chemistry panel. Severe hyperglycemia noted without acidosis. Troponin negative. Imaging studies: Chest imaging revealed atelectasis and cardiomegaly. No acute changes. Consultation: A consultation was placed with the hospitalist. The case was discussed and diagnostics were reviewed. The patient was evaluated in the ER for further treatment. IMPRESSION: Severe hyperglycemia PLAN: Admitted; being evaluated by hospitalist. The scribe's documentation has been prepared under my direction and personally reviewed by me in its entirety. I confirm that the note above accurately re flects all work, treatment, procedures, and medical decision making performed by me. Impression & Plan Severe hyperglycemia due to diabetes mellitus Past Med/Surg History Medical History (Updated 07/04/19 @ 21:19 by Carlene Figueredo MD) CAD (coronary artery disease), [place] coronary artery Chronic pleural effusion Chronic systolic CHF (congestive heart failure) CKD (chronic kidney disease) stage 3, GFR 30-59 ml/min Diabetes mellitus GERD (gastroesophageal reflux disease) Gout History of anesthesia reaction hallucinated after bypass surgery---no lingering issues, no further issues with anesthesia Hyperlipidemia Hypertension ICD (implantable cardioverter-defibrillator) in place 01/05/[place] [place] [facility] [place]schemic cardiomyopathy Lung abnormality hx of fluid around right lung--drained, but scared lung, unable to full expand (50% function) On home oxygen therapy 2L via N/C prn sob Tinnitus of right ear Surgical History History of cardiac cath x2--10/2003 and 2004 @ [facility] [place] History of colonoscopy History of coronary artery bypass graft x 3 10/2003---follows with Dr. Flynn History of heart artery stent 04/03/2005 (2) done at [facility] [place] History of surgery drainage of fluid from around right lung Family History Mother Family history of diabetes mellitus Other No family history of adverse response to anesthesia Social History Preferred Language: Italian Communication Ability: Effective Air Tucker Required: No Beliefs That Will Affect Care: None Current Living Situation: Spouse Other Information That Helps Us Care for You: No Feels Safe at Home: Yes Safety Concerns: Feels Safe At This Time Smoking Status: Former smoker Smoking End Date: 15 years ago ; Second Hand Exposure: No ; Hx Alcohol Use: No Hx Substance Use: No Results & Data Vital Signs Vital Signs - 24 hr 07/04/19 15:02 07/04/19 15:36 07/04/19 16:00 Temperature 36.4 C L Temperature Source Oral Pulse Rate 71 69 72 Pulse Rate from SpO2 Sensor 70 72 Respiratory Rate 18 18 23 Blood Pressure 111/70 97/61 L 101/73 Blood Pressure Mean 83 77 82 Pulse Oximetry 91 91 89 L Oxygen Delivery Method Room Air Sepsis Recent Fever Within 48 Hours No Sepsis New/Unexplained Change in Mental Status No Sepsis Action Taken by Nursing No Action Required 07/04/19 16:30 07/04/19 17:00 07/04/19 17:05 Temperature Temperature Source Pulse Rate 72 68 Pulse Rate from SpO2 Sensor 72 68 Respiratory Rate 29 H 33 H Blood Pressure 119/78 116/63 Blood Pressure Mean 94 89 Pulse Oximetry 90 93 94 Oxygen Delivery Method Room Air Sepsis Recent Fever Within 48 Hours Sepsis New/Unexplained Change in Mental Status Sepsis Action Taken by Nursing 07/04/19 17:30 07/04/19 18:00 07/04/19 18:32 Temperature Temperature Source Pulse Rate 69 68 76 Pulse Rate from SpO2 Sensor 68 68 77 Respiratory Rate 23 24 21 Blood Pressure 95/60 L 92/59 L 122/82 Blood Pressure Mean 62 69 94 Pulse Oximetry 92 91 94 Oxygen Delivery Method Room Air Sepsis Recent Fever Within 48 Hours Sepsis New/Unexplained Change in Mental Status Sepsis Action Taken by Alf Medications Current Medication List: was personally reviewed by me Laboratory Data Attestation: I reviewed the patient's lab results. Result diagrams: 07/04/19 15:26 07/04/19 18:27 Lab Results 07/04/19 07/04/19 07/04/19 Range/Units 15:08 15:26 15:26 WBC 9.21 (4.8-10.8) K/uL RBC 4.75 (4.7-6.1) M/uL Hgb 16.0 (14.0-18.0) g/dL Hct 45.4 (42-52) % MCV 95.6 (80-100) fL MCH 33.7 (25-34) pg MCHC 35.2 (32-36) g/dL RDW Std Deviation 46.1 (36.4-46.3) fL RDW Coeff of Mike 13.4 (11.5-14.5) % Plt Count 159 (130-400) K/uL MPV 11.7 H (7.4-10.4) fL Immature Gran % (Auto) 0.4 % Neut % (Auto) 72.1 % Lymph % (Auto) 17.8 % [place] % (Auto) 8.5 % Eos % (Auto) 1.1 % Baso % (Auto) 0.1 % Immature Gran # (Auto) 0.04 H (0.00-0.02) K/uL Neut # (Auto) 6.64 H (1.4-6.5) K/uL Lymph # (Auto) 1.64 (1.2-3.4) K/uL [place] # (Auto) 0.78 H (0.11-0.59) K/uL Eos # (Auto) 0.10 (0-0.5) K/uL Baso # (Auto) 0.01 (0-0.2) K/uL Sodium 128 L (136-145) mmol/L Potassium (3.5-5.1) mmol/L Chloride 91 L (98-107) mmol/L Carbon Dioxide 31 (21-32) mmol/L Anion Gap 5.0 (3-11) BUN 32 H (7-18) mg/dl Creatinine 1.78 H (0.6-1.4) mg/dl Est Cr Clr Drug Dosing 39.9 ml/min Est GFR ( Amer) 43.8 Est GFR (Non-Af Amer) 37.8 BUN/Creatinine Ratio 18.1 (10-20) Glucose 624 H* (70-99) mg/dl POC Glucose > 600 H* (70-99) mg/dl Calcium 9.5 (8.5-10.1) mg/dl Phosphorus (2.5-4.9) mg/dl Magnesium (1.8-2.4) mg/dl Total Bilirubin 0.7 (0.2-1) mg/dl AST (15-37) U/L ALT 21 (12-78) U/L Alkaline Phosphatase 118 H (45-117) U/L Troponin I < 0.015 (0-0.045) ng/ml Total Protein 8.2 (6.4-8.2) gm/dl Albumin 3.6 (3.4-5.0) gm/dl Globulin 4.6 H (2.5-4.0) gm/dl Albumin/Globulin Ratio 0.8 L (0.9-2) Beta-Hydroxybutyric Acd (0.2-2.81) mg/dl TSH 1.930 (0.300-4.500) uIu/ml Hepatitis C Ab Screen (Neg) 07/04/19 07/04/19 07/04/19 Range/Units 15:26 17:35 17:36 WBC (4.8-10.8) K/uL RBC (4.7-6.1) M/uL Hgb (14.0-18.0) g/dL Hct (42-52) % MCV (80-100) fL MCH (25-34) pg MCHC (32-36) g/dL RDW Std Deviation (36.4-46.3) fL RDW Coeff of Mike (11.5-14.5) % Plt Count (130-400) K/uL MPV (7.4-10.4) fL Immature Gran % (Auto) % Neut % (Auto) % Lymph % (Auto) % [place] % (Auto) % Eos % (Auto) % Baso % (Auto) % Immature Gran # (Auto) (0.00-0.02) K/uL Neut # (Auto) (1.4-6.5) K/uL Lymph # (Auto) (1.2-3.4) K/uL [place] # (Auto) (0.11-0.59) K/uL Eos # (Auto) (0-0.5) K/uL Baso # (Auto) (0-0.2) K/uL Sodium (136-145) mmol/L Potassium (3.5-5.1) mmol/L Chloride (98-107) mmol/L Carbon Dioxide (21-32) mmol/L Anion Gap (3-11) BUN (7-18) mg/dl Creatinine (0.6-1.4) mg/dl Est Cr Clr Drug Dosing ml/min Est GFR ( Amer) Est GFR (Non-Af Amer) BUN/Creatinine Ratio (10-20) Glucose (70-99) mg/dl POC Glucose 489 H* 481 H* (70-99) mg/dl Calcium (8.5-10.1) mg/dl Phosphorus (2.5-4.9) mg/dl Magnesium (1.8-2.4) mg/dl Total Bilirubin (0.2-1) mg/dl AST (15-37) U/L ALT (12-78) U/L Alkaline Phosphatase (45-117) U/L Troponin I (0-0.045) ng/ml Total Protein (6.4-8.2) gm/dl Albumin (3.4-5.0) gm/dl Globulin (2.5-4.0) gm/dl Albumin/Globulin Ratio (0.9-2) Beta-Hydroxybutyric Acd (0.2-2.81) mg/dl TSH (0.300-4.500) uIu/ml Hepatitis C Ab Screen Neg (Neg) 07/04/19 07/04/19 07/04/19 Range/Units 18:27 18:27 18:51 WBC (4.8-10.8) K/uL RBC (4.7-6.1) M/uL Hgb (14.0-18.0) g/dL Hct (42-52) % MCV (80-100) fL MCH (25-34) pg MCHC (32-36) g/dL RDW Std Deviation (36.4-46.3) fL RDW Coeff of Mike (11.5-14.5) % Plt Count (130-400) K/uL MPV (7.4-10.4) fL Immature Gran % (Auto) % Neut % (Auto) % Lymph % (Auto) % [place] % (Auto) % Eos % (Auto) % Baso % (Auto) % Immature Gran # (Auto) (0.00-0.02) K/uL Neut # (Auto) (1.4-6.5) K/uL Lymph # (Auto) (1.2-3.4) K/uL [place] # (Auto) (0.11-0.59) K/uL Eos # (Auto) (0-0.5) K/uL Baso # (Auto) (0-0.2) K/uL Sodium 133 L (136-145) mmol/L Potassium 4.6 (3.5-5.1) mmol/L Chloride 97 L (98-107) mmol/L Carbon Dioxide 28 (21-32) mmol/L Anion Gap 8.0 (3-11) BUN 31 H (7-18) mg/dl Creatinine 1.49 H (0.6-1.4) mg/dl Est Cr Clr Drug Dosing 47.6 ml/min Est GFR ( Amer) 54.3 Est GFR (Non-Af Amer) 46.9 BUN/Creatinine Ratio 20.8 H (10-20) Glucose 447 H* (70-99) mg/dl POC Glucose 450 H* (70-99) mg/dl Calcium 9.1 (8.5-10.1) mg/dl Phosphorus 2.8 (2.5-4.9) mg/dl Magnesium 2.6 H (1.8-2.4) mg/dl Total Bilirubin (0.2-1) mg/dl AST 12 L (15-37) U/L ALT (12-78) U/L Alkaline Phosphatase (45-117) U/L Troponin I (0-0.045) ng/ml Total Protein (6.4-8.2) gm/dl Albumin (3.4-5.0) gm/dl Globulin (2.5-4.0) gm/dl Albumin/Globulin Ratio (0.9-2) Beta-Hydroxybutyric Acd 10.21 H Cancelled (0.2-2.81) mg/dl TSH (0.300-4.500) uIu/ml Hepatitis C Ab Screen (Neg) Administered Medications Allopurinol (Zyloprim) 100 mg PO BID RYAN Stop: 08/03/19 20:59 Last Admin: 07/04/19 21:21 Dose: 100 mg Documented by: [id number] Atorvastatin Calcium (Lipitor) 80 mg PO HS RYAN Stop: 08/03/19 20:59 Last Admin: 07/04/19 21:23 Dose: 80 mg Documented by: [id number] Enoxaparin Sodium (Lovenox) 40 mg SQ Q24H RYAN Stop: 08/03/19 20:59 Last Admin: 07/04/19 21:21 Dose: 40 mg Documented by: [id number] Insulin Human Regular 250 (units/ Sodium Chloride) 250 mls @ 2.2 mls/hr IV .Q24H RYAN; Protocol Stop: 08/03/19 17:14 Last Titration: 07/05/19 00:30 Dose: 2.2 units/hr, 2.2 mls/hr Documented by: [id number] Cosigned by: [id number] Titration: 07/04/19 23:03 Dose: 2.8 units/hr, 2.8 mls/hr Documented by: [id number] Cosigned by: [id number] Titration: 07/04/19 22:49 Dose: 2.8 units/hr, 2.8 mls/hr Documented by: [id number] Cosigned by: [id number] Titration: 07/04/19 22:03 Dose: 2.8 units/hr, 2.8 mls/hr Documented by: [id number] Cosigned by: [id number] Titration: 07/04/19 21:04 Dose: 3.5 units/hr, 3.5 mls/hr Documented by: [id number] Cosigned by: [id number] Titration: 07/04/19 20:11 Dose: 2.9 units/hr, 2.9 mls/hr Documented by: [id number] Cosigned by: [id number] Titration: 07/04/19 18:57 Dose: 2.4 units/hr, 2.4 mls/hr Documented by: [id number] Cosigned by: [id number] Admin: 07/04/19 17:50 Dose: 2 units/hr, 2 mls/hr Documented by: [id number] Cosigned by: [id number] Insulin Aspart (Novolog Flexpen) 0 units SC ACHS RYAN Stop: 08/03/19 20:59 Last Admin: 07/04/19 22:03 Dose: Not Given Documented by: [id number] Cosigned by: [id number] Metoprolol Succinate (Toprol Xl) 100 mg PO BID RYAN Stop: 08/03/19 20:59 Last Admin: 07/04/19 21:22 Dose: 100 mg Documented by: [id number] Metoprolol Succinate (Toprol Xl) 25 mg PO BID RYAN Stop: 08/03/19 20:59 Last Admin: 07/04/19 21:22 Dose: 25 mg Documented by: [id number] Pantoprazole Sodium (Protonix) 40 mg PO BID RYAN Stop: 08/03/19 20:59 Last Admin: 07/04/19 21:22 Dose: 40 mg Documented by: [id number] Discontinued Medications Sodium Chloride (Nss 1000ml) 1,000 mls @ 125 mls/hr IV .Q8H RYAN Stop: 07/05/19 00:29 Last Infusion: 07/04/19 22:00 Dose: 0 mls/hr Documented by: [id number] Admin: 07/04/19 17:04 Dose: 125 mls/hr Documented by: [id number] Sodium Chloride (Nss 1000ml) 500 mls @ 999 mls/hr IV .Q31M ONE Stop: 07/04/19 17:54 Last Infusion: 07/04/19 18:29 Dose: 0 mls/hr Documented by: [id number] Admin: 07/04/19 17:54 Dose: 999 mls/hr Documented by: [id number] Insulin Human Regular (Novolin R Bolus From Bag) 2 units IV ONE ONE Stop: 07/04/19 17:46 Last Admin: 07/04/19 17:52 Dose: 2 units Documented by: [id number] Cosigned by: [id number] Miscellaneous (Insulin Protocol Goal Range) 1 ea N/A ONE ONE Stop: 07/04/19 17:15 Last Admin: 07/04/19 17:54 Dose: 1 ea Documented by: [id number] Miscellaneous (Insulin Protocol Moderate Stress Level) 1 ea N/A ONE ONE Stop: 07/04/19 17:15 Last Admin: 07/04/19 17:55 Dose: 1 ea Documented by: [id number] Imaging Data Radiologist's Impression: Radiology results as stated below per my review and the radiologist's interpretation: XR chest 1V portable HISTORY: 69 years-old Male weakness acute weakness COMPARISON: Chest radiographs 05/03/2017 TECHNIQUE: Portable AP view of the chest FINDINGS: Cardiac silhouette is enlarged. Prior median sternotomy and CABG. Left subclavian pacer/AICD. Unchanged pleural effusions with bibasilar densities. No pneumothorax or overt pulmonary edema. Degenerative changes of the shoulders and spine. IMPRESSION: 1. Stable exam. 2. Cardiomegaly with unchanged pleural effusions and bibasilar opacities suggestive of probable atelectasis/scarring. ACT 112: Negative or not required by law. The above report was generated using voice recognition software. It may contain grammatical, syntax or spelling errors. Electronically signed by: Everett Garcia M.D. 07/04/2019 4:49 PM ECG Data Attestation: I personally reviewed and interpreted this ECG as follows: Indication: + weakness Rate (beats per minute): 67 Rhythm: normal sinus ECG ST segments: + T-wave inversions (anterolateral ); no ST depression and no ST elevation ECG Findings: no PVCs Comparison ECG Date: from (08/18/15) Change: the following changes noted (TWI are new ) Blood Pressure Blood Pressure Findings: Low blood pressure Blood Pressure Disposition: further management by hospitalist Discharge Plan Visit Data *Final* Discharge Date/Time: 07/04/19 19:17 Chief Complaint: Hyperglycemia Stated Complaint: HIGH BLOOD SUGAR Other Complaint: Referred by Doctor ED Provider: Alexander Kennedy Discharge Problem: Severe hyperglycemia due to diabetes mellitus Patient Disposition: Admitted As Inpatient Discharge Instructions Interventions: ED Discharge Assessment Last Done: 07/04/19 19:17 The scribe's documentation has been prepared under my direction and personally reviewed by me in its entirety. I confirm that the note above accurately reflects all work, treatment, procedures, and medical decision making performed by me.
[2019-07-05] MEDS ORDERED: INSULIN GLARGINE SOLOSTAR 100 UNITS/ML 3 ML PEN SC ONE ×2 (01:45→08:30)
[2019-07-05] MEDS: INSULIN ASPART 100 UNITS/ML 3 ML PEN SC SCH ×5 (04:29→17:59)
[2019-07-05 06:40] LABS: Estimated Average Glucose 344 mg/dl; Hemoglobin A1C 13.6 % (4.5-5.6)
[2019-07-05] MEDS: METOPROLOL SUCC 50MG EXT REL TAB PO SCH (07:38)
[2019-07-05] MEDS: PANTOprazole 40 MG TAB PO SCH (07:39)
[2019-07-05] MEDS: METOPROLOL SUCC 25MG EXT REL TAB PO SCH (07:39)
[2019-07-05] MEDS: allopurinoL 100 MG TAB PO SCH (07:39)
[2019-07-05 08:06] LABS: Eosinophils % (auto) 1.9 %; Hematocrit (blood only) 42.2 % (42-52); Hemoglobin 14.7 g/dL (14.0-18.0); Lymphocytes % (auto) 28.9 %; Mean Corpuscular Hemoglobin 33.6 pg (25-34); Mean Corpuscular Hgb Conc 34.8 g/dL (32-36); Mean Corpuscular Volume 96.3 fL (80-100); Mean Platelet Volume 10.8 fL (7.4-10.4); Monocytes % (auto) 8.5 %; Neutrophils % (auto) 60.4 %; Platelet Count 144 K/uL (130-400); RDW Coefficient of Variation 13.4 % (11.5-14.5); RDW Standard Deviation 47.4 fL (36.4-46.3); Red Blood Count 4.38 M/uL (4.7-6.1); White Blood Count 8.23 K/uL (4.8-10.8)
[2019-07-05 08:07] LABS: Basophils # (auto) 0.01 K/uL (0-0.2); Basophils % (auto) 0.1 %; Eosinophils # (auto) 0.16 K/uL (0-0.5); Immature Granulocytes # (auto) 0.02 K/uL (0.00-0.02); Immature Granulocytes % (auto) 0.2 %; Lymphocytes # (auto) 2.38 K/uL (1.2-3.4); Neutrophils # (auto) 4.96 K/uL (1.4-6.5)
[2019-07-05 08:43] LABS: Albumin Level 3.1 gm/dl (3.4-5.0); BUN Creatinine Ratio 22.3 (10-20); Calcium 9.2 mg/dl (8.5-10.1); Creatinine Clr Calc Pharmacy 62.3 ml/min; Est GFR (African American) 75.1; Est GFR (Non-African American) 64.8; Magnesium 2.2 mg/dl (1.8-2.4); Potassium 4.3 mmol/L (3.5-5.1)
[2019-07-05 08:47] LABS: Bilirubin Direct 0.1 mg/dl (0-0.2); Bilirubin,Total 0.7 mg/dl (0.2-1); Phosphorus 2.8 mg/dl (2.5-4.9); Total Protein 6.9 gm/dl (6.4-8.2)
[2019-07-05] MEDS ORDERED: ASPIRIN 81 MG ECTAB PO SCH (09:00)
[2019-07-05] MEDS ORDERED: MAGNESIUM OXIDE 400 MG TAB PO SCH (09:00)
[2019-07-05] MEDS ORDERED: FOLIC ACID 400 MCG TAB PO SCH (09:00)
[2019-07-05] MEDS ORDERED: CEROVITE ADV FORMULA TAB PO SCH (09:00)
[2019-07-05] MEDS ORDERED: IOVERSOL 100ml IV PRN (12:09)
--- NOTE | 2019-07-05 12:34 | CT Scan Report ---
ABDOMEN AND PELVIS CT WITH IV CONTRAST CT DOSE: 609.47 mGy.cm HISTORY: acute onset hyperglycemia,r/o pancreatic mass TECHNIQUE: Multiaxial CT images of the abdomen and pelvis were performed following the use of intrave nous contrast. A dose lowering technique was utilized adhering to the principles of ALARA. COMPARISON STUDY: Abdominal ultrasound 09/06/2018. Chest CTA 04/03/2008. FINDINGS: Small partially loculated right pleural effusion with peripheral calcification. There is a trace left pleural effusion with a few slightly dense subpleural nodules measuring up to 2 cm. These findings remain unchanged compared to the 2007 study and therefore considered to be benign. Pacemaker wires are noted. There are poststernotomy changes. Bibasilar linear densities favor scarring or atel ectasis. No pneumoperitoneum. No pneumatosis. Tiny fat-containing umbilical hernia. Small fat-contain ing bilateral inguinal hernias. Hepatic steatosis. No hepatic or splenic masses. The adrenal glands a re unremarkable. A few subcentimeter bilateral renal hypodense lesions. These are technically too sma ll to characterize. No hydronephrosis. No retroperitoneal lymphadenopathy. Normal bladder. Moderate t o severe atherosclerotic plaque aorta, iliacs, and mesenteric arteries. There is mild to moderate mul tifocal narrowing within the bilateral iliac arteries. Colonic diverticulosis. No bowel wall thickeni ng or obstruction. Normal appendix. The pancreas enhances normally. No pancreatic masses identified. Cholelithiasis. No gallbladder wall thickening. IMPRESSION: 1. Normal pancreas. 2. Cholelithiasis. 3. Hepatic steatosis. 4. Chronic parenchymal changes and pleural effusions are again noted at the lung bases. 5. Colonic diverticulosis. 6. Additional findings as described above. ACT 112: Negative or not required by law. Electronically signed by: Rafael Solis M.D. 07/05/2019 12:33 PM
--- NOTE | 2019-07-05 14:49 | Pharmacy Report ---
Pharmacy Glycemic Short Note 2 - Date of Service July 05, 2019 - Glycemic Short BSG Results (Last 24 hours): 07/04/19 07/04/19 07/04/19 15:08 15:26 17:35 Glucose 624 H* POC Glucose > 600 H* 489 H* 07/04/19 07/04/19 07/04/19 17:36 18:27 18:51 Glucose 447 H* POC Glucose 481 H* 450 H* 07/04/19 07/04/19 07/04/19 20:06 21:01 22:00 Glucose POC Glucose 401 H* 324 H* 233 H 07/04/19 07/05/19 07/05/19 22:59 00:06 01:04 Glucose POC Glucose 192 H 148 H 108 H 07/05/19 07/05/19 07/05/19 01:27 01:49 04:14 Glucose POC Glucose 98 115 H 182 H 07/05/19 07/05/19 07/05/19 07:28 07:51 12:24 Glucose 210 H POC Glucose 209 H 309 H* 07/05/19 12:26 Glucose POC Glucose 293 H OUTPATIENT ANTIDIABETIC REGIMEN: * JANUVIA 25MG PO DAILY * A1c 13.6% --> up from 7.2% in February of 2019 ASSESSMENT: 07/05/19 * Patient transitioned off of insulin drip today, given total of 25 units of Lantus, blood sugars increasing throughout the day off of drip, will tighten CF/CR further. * CT of abdomen today to check pancreas for increase in A1c over short period of time. * See DC recs below if DC today 07/04/19 * Mr. Fox is a 69 M with a history of HTN, T2DM, HLD, with an implanted defibrillator. He presented to the ED with a POC BSG >600, lab draw was 624. * An insulin gtt was started in the ED and continued on admission. * AG and CO2 wnl. * Last A1C 02/2019 - 7.2%, updated A1C pending. PLAN FOR INPATIENT GLYCEMIC CONTROL: * Hold outpatient oral diabetes medications * Basal: * Lantus 10 units at 0145 and 15 units at 0900 today * Lantus 25 units daily starting tomorrow * Bolus: Novolog ACHS and overnight at 0000 and 0400 tonight * Goal range 110-140mg/dl * tighten: CF: 20mg/dl/unit * tighten: Carb ratio: 1 unit per 7 grams CHO consumed PLAN FOR DISCHARGE: * Based on a short period of time as inpatient on SQ insulin my best discharge recommendation at this time would be: * Discontinue Januvia * Lantus 25 units SQ Daily * Novolog 8 units with meals * Follow up with outpatient provider for close glycemic control as insulin doses are determined/titrated
--- NOTE | 2019-07-05 17:02 | Electrocardiogram Report ---
Test Reason : Blood Pressure : / mmHG Vent. Rate : 067 BPM Atrial Rate : 067 BPM P-R Int : 154 ms QRS Dur : 084 ms QT Int : 422 ms P-R-T Axes : 017 -05 032 degrees QTc Int : 445 ms Normal sinus rhythm Possible Inferior infarct Abnormal ECG When compared with ECG of 18-AUG-2015 19:50, T wave inversion now evident in Anterior leads Confirmed by Luis Carlos Brennan ([id number] on 07/05/2019 5:01:53 PM Referred By: REFERRED SELF Confirmed By:Luis Carlos Brennan
--- NOTE | 2019-07-05 19:15 | Discharge Summary ---
Date of Service July 05, 2019 Admission HPI Per Admitting Provider This patient is a 69-year-old male with a history of DM 2, chronic systolic CHF, ischemic cardiomyopathy, CKD stage III, ICD/PPM, gout, CAD with history of CABG, GERD, who presented to the ER after he found his blood sugar to be greater than 600 on his meter at home. He reports he was stopped from his metformin 1 year ago and his hemoglobin A1c 6 months ago was 7.2%. He was placed on Januvia when his metformin was stopped. He stopped checking his blood sugars a few months back. And has noticed over the last 2 months he is developed excessive thirst, blurry vision, and worsening fatigue. He finally got his glucometer out today and checked his sugar and found it to be 600. He denies chest pains or shortness of breath, no weight gain or loss. No nausea or vomiting, no abdominal pains or changes in bowel habits. No recent fevers/cold symptoms, no cough. In the ER, he was given 500 mL bolus of normal saline followed by the rest of the 500 mils at a rate of 125 mL's per hour. He was started on insulin drip before I saw him. Blood sugars were down into the mid 400s when I saw him. He had a mild acute kidney injury. His beta hydroxybutyric acid was elevated, however he had no evidence of metabolic acidosis or DKA. Principal Diagnosis Hyperglycemia, ACACIA Discharge Exam Constitutional WD/WN, vitals as above Eyes PERRL, conjunctivae normal, anicteric sclerae ENMT external ear and nose normal, oropharynx normal Neck trachea midline, no thyromegaly Respiratory normal respiratory effort, lungs clear to auscultation Cardiovascular RRR, no murmur, no edema Vessels: dorsalis pedis pulses present Extremities: no calf tenderness Chest (Breasts) Chest: + pacemaker (Left anterior chest wall) Gastrointestinal (Abdomen) normal bowel sounds, soft, nontender, no hepatosplenomegaly Musculoskeletal Extremities: extremities normal to inspection; no cyanosis and no clubbing Skin no rashes, warm and dry Neurologic moves all extremities and awake; no focal motor deficits Psychiatric A+Ox3, euthymic affect Lymphatic no lymphedema Discharge Data Allergies Allergy/AdvReac Type Severity Reaction Status Date / Time No Known Allergies Allergy Unknown Verified 07/04/19 16:32 Consultations 07/04/19 17:30 ED Decision to Admit Stat Ordered Studies CXR 07/05/19 11:42 CT abd pelvis IV con only Routine Hospital Course (1) Severe hyperglycemia due to diabetes mellitus: Presented with 2 months of worsening blurry vision, excessive thirst, fatigue and found to have blood sugar of 624 on admission Reports discontinuing his metformin 1 year ago likely for worsening CKD and starting on Januvia at that time Hemoglobin A1c reportedly 7.2% just 6 months ago and now up to 13.6% No evidence of DKA Fairly significant increase in glucose levels over the last few months-question if pancreatic process going on, however CT abd/pel performed here and no pancreatic abnormality seen. -Admitted to medical floor with telemetry and had no significant cardiac arrhythmias -He was initially gently hydrated with 1 L of normal saline and then held off on further fluids given cardiomyopathy -On insulin drip initially and then transitioned to basal bolus insulin regimen -given education by nurses on how to self-administer insulin with pens -Consulted paraeducator and dietitian but unfortunately they were not available over the weekend-he was given ph# for CDE to contact as an outpt and could use outpt Nutrition referral Stable for dc to home with Lantus 25 units once daily and Novolog 8 units qac for now, can titrate upwards or downwards as needed as outpt (2) ACACIA (acute kidney injury): Creatinine up to 1.78 on admission secondary to dehydration from hyperglycemia Baseline creatinine around 1.4 -Hydrated with normal saline, control blood sugars--> drapery seamstress down to 1.1 on day of discharge -Follow BMP as an outpt -Held home lisinopril and Lasix here but can restart after discharge (3) CKD (chronic kidney disease) stage 3, GFR 30-59 ml/min: With acute kidney injury as above -Avoid nephrotoxins -Renally dose medications when appropriate (4) Chronic pleural effusion: Reports having thoracentesis 15 years ago after the time of his CABG Appears to have chronic pleural effusions likely from heart failure Not hypoxic, no respiratory distress (5) Diabetes mellitus: Plan outlined as above (6) Gout: No acute flares in many years -Continue allopurinol 100 mg p.o. twice daily (7) Hypertension: Blood pressures controlled to low on admission, remained stable -Held lisinopril and Lasix for ACACIA as above but ok to restart upon discharge Continue Toprol-XL 125 mg p.o. twice daily (8) Hyperlipidemia: -Continue atorvastatin 80 mg at bedtime (9) ICD (implantable cardioverter-defibrillator) in place: For primary prevention given severe ischemic cardiomyopathy (10) GERD (gastroesophageal reflux disease): Continue PPI (11) CAD (coronary artery disease), [place] coronary artery: With a history of CABG in 2003 and then stents to the RCA in 2004 No problems since then No chest pains ECG with anterolateral T wave inversions fairly similar to previous Troponin here is negative -Continue aspirin 81 mg daily, statin 80 mg daily, Toprol-XL 125 mg p.o. twice daily -restarting lisinopril upon dc (12) Hyponatremia: Pseudohyponatremia secondary to severe hyperglycemia Sodium corrected is normal (13) Abnormal ECG: Anterolateral T wave inversions as above, fairly stable from previous (14) Chronic systolic CHF (congestive heart failure): Most recent echocardiogram scanned and has an LVEF 40% which is an improvement from previous -Continue Toprol-XL -restarting lisinopril and Lasix as above -daily weights, heart healthy diet at home (15) DVT prophylaxis: Lovenox SQ Disposition-stable for dc to home Total Time Total Time Spent Total Time Spent (In Minutes): 45 min Total Time Includes: Examination of the Patient, Discharge Planning and Medication Reconciliation Discharge Plan Discharge Items Patient Disposition: Home - Self-Care Reason For Visit: HYPERGLYCEMIA Discharge Diagnosis: Hyperglycemia, Uncontrolled diabetes, dehydration Condition on Discharge: Good Activity: Resume your previous activity Driving/Machine Use: No limitations Non-emergency contact: Primary Care Provider Call non-emergency contact if: you have any medication questions and your symptoms worsen Follow-up/Referrals: Galo Ford Jr, [Primary Care Provider] - (Call on Sunday morning for a hospital follow up appointment.) Diet: Carb Consistent or DM2 and Low Sodium (2gm) Addtl Attending Provider Instructions: You were admitted with severely elevated blood glucose levels and dehydration. You were started on insulin and had improvement in your blood sugars. You were also given some IV fluids and your dehydration resolved. Your hemoglobin A1C was found to be very high at 13.6%. Please continue the insulin at home usin. Lantus 25 units once daily in the morning (your long acting insulin) 2. Novolog 8 units with each meal, breakfast, lunch, and dinner (your meal time or short acting insulin) STOP taking the Januvia. You had a CT scan of your abdomen and pelvis which showed that your pancreas appears normal. You do have a fatty liver and this should improve with better control of your diabetes and with weight loss. If you have lightheadedness, shakiness, blurry vision, sweating, or confusion, please check your blood sugar and if it's less than 70, please drink juice or take a glucose tablet which can be bought at the drug store. Please follow up with your PCP within 1 week after discharge. You can arrange follow up with a Indoor Landscape Architect after discharge by calling [phone]. Pending Studies at Discharge: No Stand-Alone Forms: [facility] Medications and DC Order Prescriptions: New insulin aspart U-100 [Novolog Flexpen U-100 Insulin] 100 unit/mL (3 mL) Insulin Pen 8 units SC AC Qty: 15 RF: 0 Lantus Solostar U-100 Insulin 100 unit/mL (3 mL) Insulin Pen 25 unit SC DAILY Qty: 15 RF: 0 (DME) pen needle, diabetic [Pen Needle] 31 gauge x 1/4" needle See Rx Instructions .ROUTE .MEDSUPPLY Qty: 100 RF: 0 Continued furosemide [Lasix] 40 mg Tablet 40 mg PO Q OTHER DAY RF: 0 furosemide [Lasix] 40 mg Tablet 20 mg PO Q OTHER DAY RF: 0 atorvastatin 80 mg Tablet 80 mg PO HS RF: 0 metoprolol succinate [Toprol XL] 100 mg Tablet Extended Release 24 Hr 100 mg PO BID RF: 0 allopurinol 100 mg Tablet 100 mg PO BID RF: 0 folic acid 400 mcg Tablet 800 mcg PO QAM RF: 0 aspirin [Aspirin Low Dose] 81 mg Tablet,Delayed Release (Dr/Ec) 81 mg PO QAM RF: 0 pantoprazole [Protonix] 20 mg Tablet,Delayed Release (Dr/Ec) 20 mg PO BID RF: 0 cyanocobalamin (vitamin B-12) 1,000 mcg/mL Solution 1,000 mcg IM MONTHLY RF: 0 lisinopril 10 mg Tablet 10 mg PO QAM RF: 0 nitroglycerin [Nitrostat] 0.4 mg Tablet, Sublingual 0.4 mg sublingual UD PRN (Reason: Angina) RF: 0 metoprolol succinate [Toprol XL] 25 mg Tablet Extended Release 24 Hr 25 mg PO BID RF: 0 colchicine 0.6 mg Tablet 0.6 mg PO DAILY PRN (Reason: gout) RF: 0 omega 1-bdt-ssd-fish oil 1,000 mg (120 mg-180 mg) Capsule 1 cap PO QDL RF: 0 One-A-Day Men's 50 Plus 400-20-370 mcg Tablet 1 tab PO QAM RF: 0 magnesium oxide 400 mg magnesium Tablet 400 mg PO QAM RF: 0 Discontinued Januvia 50 mg Tablet 50 mg PO QAM RF: 0 Discharge Orders: Discharge Order (Routine); Ordered 07/05/19 Ordered By: Carlene Frye/Other Patient Handouts: Diabetes Resources, Diabetes Healthy Meals Admission Data Admit Date/Time: 07/04/19 18:58 Attending Provider: Carlene Figueredo Admit Provider: Carlene Figueredo Primary Care Provider: Galo Ford Jr Other Providers: Jocelyn Weaver Other Interventions: Discharge Summary Assessment (RN) Last Done: 07/05/19 19:32 DC Date/Time DO NOT enter until pt leaves facility: 07/05/19 20:05 Coding Level of Care Code D/C Day Management >30 mins Diagnoses Severe hyperglycemia due to diabetes mellitus E11.65 ACACIA (acute kidney injury) N17.9 CKD (chronic kidney disease) stage 3, GFR 30-59 ml/min N18.3 Chronic pleural effusion J90 Diabetes mellitus E11.9 Gout M10.9 Hypertension I10 Hyperlipidemia E78.5 ICD (implantable cardioverter-defibrillator) in place Z95.810 GERD (gastroesophageal reflux disease) K21.9 CAD (coronary artery disease), [place] coronary artery I25.10 Hyponatremia E87.1 Abnormal ECG R94.31 Chronic systolic CHF (congestive heart failure) I50.22 DVT prophylaxis Z29.9
[2019-07-06] MEDS ORDERED: INSULIN ASPART 100 UNITS/ML 3 ML PEN SC SCH
[2019-07-06] MEDS ORDERED: INSULIN GLARGINE SOLOSTAR 100 UNITS/ML 3 ML PEN SC SCH (09:00)
== END 2019-07-05 20:05 | disposition home or self-care (01) ==
LOC: 2N 14:37 → ED 14:37 → 2N 19:17